=== PATIENT | male | born 1940 | race Caucasian/White ===

== ENCOUNTER 2017-02-28 04:29 | Emergency (ER) | payer MEDICARE, BC ==
[~2017-02-28] VITALS: Ht 172.7 cm; Wt 74.8 kg
[2017-02-28] MEDS ORDERED: BLACK CUMIN SEED OIL PO (04:45)
[2017-02-28] MEDS ORDERED: ACET-2154 PO (04:45)
[2017-02-28] MEDS ORDERED: RANI150C4 PO (04:45)
[2017-02-28] MEDS ORDERED: BICA50TA2 PO (04:45)
[2017-02-28] MEDS ORDERED: IV NORMAL SALINE 1000 ML BAG IV ONE (04:45)
[2017-02-28] MEDS ORDERED: HYDROMORPHONE 1 MG/1 ML DISP.SYRIN IV ONE ×2 (04:45→05:30)
[2017-02-28] MEDS ORDERED: CYAN100096 PO (04:45)
[2017-02-28] MEDS ORDERED: PRAV20TA4 PO (04:45)
[2017-02-28] MEDS ORDERED: CHOL100045 PO (04:45)
[2017-02-28] MEDS ORDERED: TURM500C4 PO (04:45)
[2017-02-28] MEDS ORDERED: ACYC800T PO (04:45)
[2017-02-28] MEDS ORDERED: [UNRECOGNIZED DRUG - CODE] MC (04:45)
[2017-02-28] MEDS ORDERED: ASPI81TA31 PO (04:45)
[2017-02-28] MEDS ORDERED: VALS40TA4 GT (04:45)
[2017-02-28] MEDS ORDERED: ONDANSETRON 4 MG/2 ML VIAL IV ONE (04:45)
[2017-02-28] MEDS ORDERED: UBID100C13 PO (04:45)
[2017-02-28] MEDS ORDERED: AMLO5TAB2 PO (04:45)
[2017-02-28] MEDS ORDERED: TAMSULOSIN HCL 0.4 MG CAP.SR.24H PO ONE (04:45)
[2017-02-28] MEDS ORDERED: KETOROLAC TROMETHAMINE 15 MG INJ IV ONE (04:45)
[2017-02-28 04:52] LABS: *BILIRUBIN,URIN NEGATIVE (NEGATIVE); *BLOOD, URINE 2+ (NEGATIVE); *CLARITY,URINE CLEAR (CLEAR); *COLOR,URINE YELLOW (YELLOW); *KETONES,URINE NEGATIVE (NEGATIVE); *PROTEIN,URINE NEGATIVE (NEGATIVE); *UROBILINOGEN,URINE 0.2 E.U./dl (NORMAL); LEUKOCYTE ESTERASE ,URINE TRACE (NEGATIVE); NITRITE, URINE NEGATIVE (NEGATIVE); PH,URINE 5.5 (5.0-8.0); UGLUCOSE NEGATIVE (NEGATIVE)
[2017-02-28] MEDS ORDERED: ONDANSETRON 4 MG/2 ML VIAL ONE (04:53)
[2017-02-28] MEDS ORDERED: KETOROLAC TROMETHAMINE 15 MG INJ ONE (04:53)
[2017-02-28] MEDS ORDERED: HYDROMORPHONE 1 MG/1 ML DISP.SYRIN ONE ×2 (04:53→05:42)
[2017-02-28] MEDS ORDERED: TAMSULOSIN HCL 0.4 MG CAP.SR.24H ONE (04:54)
--- NOTE | 2017-02-28 05:00 | NUR ---
Pt to room and changed into gown. Pt c/o severe right flank pain radiating right abd. Pt sts history of multiple kidney stones. Sts has left sided kidney stones approx 8 mos ago. Pt seen by Dr. Hartman. IV established, labs drawn and sent. Pt medicated for discomfort, will monitor for effects of medication. Fluid bolus infusing freely to gravity. Pt resting in position of comfor for self, awaiting CT
--- NOTE | 2017-02-28 05:05 | NUR ---
Pt to CT via [facility]
[2017-02-28 05:08] LABS: BACTERIA,URINE NONE SEEN /HPF (NONE SEEN); RBC,URINE 50-80 /HPF (0-3); SQUAMOUS EPITHELIAL CELL,UR NONE SEEN /HPF (NONE SEEN)
[2017-02-28 05:14] LABS: BASOPHILS % (AUTO) 0.5 % (0.0-2.0); EOSINOPHILS # (AUTO) 0.2 K/uL (0.0-0.7); HEMATOCRIT 39.3 % (40-50); HEMOGLOBIN 13.7 G/DL (14.0-18.0); LYMPHOCYTES # (AUTO) 1.5 K/UL (0.8-4.8); LYMPHOCYTES % (AUTO) 26.4 % (20.5-51.5); MEAN CORPUSCULAR HGB CONC 35 g/dL (32.0-37.0); MEAN CORPUSCULAR VOLUME 85.8 FL (82.0-92.0); MONOCYTES # (AUTO) 0.7 K/UL (0.1-1.30); MONOCYTES % (AUTO) 12.1 % (0.0-11.0); NEUTROPHILS # (AUTO) 3.4 K/UL (1.8-8.9); PLATELET COUNT (AUTO) 219 K/UL (150-450); RED BLOOD CELL COUNT(AUTO) 4.58 MIL/UL (4.7-6.1); WHITE BLOOD COUNT (AUTO) 5.8 K/UL (4.0-11.2)
[2017-02-28 05:23] LABS: ALANINE AMINOTRANSFERASE 31 U/L (16-63); ALKALINE PHOSPHATASE 61 U/L (50-136); ASPARTATE AMINOTRANSFERASE 18 U/L (15-37); BILIRUBIN,DIRECT 0.1 mg/dL (0.0-0.2); BILIRUBIN,TOTAL 0.4 mg/dL (0.2-1.0); CARBON DIOXIDE 24 mmol/L (21-32); CHLORIDE 104 mmol/L (98-107); CREATININE 1.4 mg/dL (0.6-1.3); GLUCOSE 106 mg/dL (74-106); LIPASE 103 U/L (73-393); POTASSIUM 3.7 mmol/L (3.5-5.1); TOTAL PROTEIN, SERUM 6.3 g/dL (6.4-8.2); UREA NITROGEN, BLOOD 22 mg/dL (7-18)
--- NOTE | 2017-02-28 05:34 | NUR ---
Pt returned from CT. Pt cont to c/o pain. MD notified and pt medicated. Will monitor for effects of medication. Fluid bolus completed. Pt resting in position of comfort for self. Family remains at bedside.
--- NOTE | 2017-02-28 06:07 | NUR ---
Pt resting in position of comfort. Sts pain improved with previous medication.
--- NOTE | 2017-02-28 06:58 | NUR ---
Pt stable for discharge per MD. IV dc'd, catheter intact. Drsg applied. No problems noted to site. Pt given ACI, Pt verbalized understanding of dc instructions. Pt ambulated out of er with steady gait and ride home
[2017-02-28 07:11] VITALS: BP 109/63
== END 2017-02-28 07:00 | disposition home or self-care (01) ==
LOC: ER 04:31
DX: N23 Unspecified renal colic (principal); I10 Essential (primary) hypertension; E78.00 Pure hypercholesterolemia, unspecified; Z79.82 Long term (current) use of aspirin; Z88.2 Allergy status to sulfonamides; Z87.442 Personal history of urinary calculi
CPT/HCPCS: 36415; 74176; 80048; 80076; 81001; 83690; 85025; 96361; 96374; 96375; 96376; 99285; A4663; J1170 ×2; J1885; J2405; J7030

== ENCOUNTER 2017-04-12 22:26 | Emergency (ER) | payer MEDICARE, BC ==
[~2017-04-12] VITALS: Ht 172.7 cm; Wt 74.8 kg
[~2017-04-12 22:26] MED LIST: ACET-2154 PO; ACYC800T PO; AMLO5TAB2 PO; ASPI81TA31 PO; BICA50TA2 PO; BLACK CUMIN SEED OIL PO; CHOL100045 PO; CYAN100096 PO; PRAV20TA4 PO; RANI150C4 PO; TURM500C4 PO; UBID100C13 PO; VALS40TA4 PO; [UNRECOGNIZED DRUG - CODE] MC
[2017-04-12] MEDS ORDERED: EZET10TA13 PO (23:10)
[2017-04-12 23:14] LABS: *BILIRUBIN,URIN NEGATIVE (NEGATIVE); *BLOOD, URINE Trace-intact (NEGATIVE); *CLARITY,URINE CLEAR (CLEAR); *COLOR,URINE YELLOW (YELLOW); *KETONES,URINE NEGATIVE (NEGATIVE); *PROTEIN,URINE NEGATIVE (NEGATIVE); *UROBILINOGEN,URINE 0.2 E.U./dl (NORMAL); LEUKOCYTE ESTERASE ,URINE NEGATIVE (NEGATIVE); NITRITE, URINE NEGATIVE (NEGATIVE); PH,URINE 5.5 (5.0-8.0); UGLUCOSE NEGATIVE (NEGATIVE)
[2017-04-12] MEDS ORDERED: HYDROMORPHONE 1 MG/1 ML DISP.SYRIN IV ONE (23:15)
[2017-04-12] MEDS ORDERED: ONDANSETRON 4 MG/2 ML VIAL IV ONE (23:15)
[2017-04-12] MEDS ORDERED: KETOROLAC TROMETHAMINE 15 MG INJ IV ONE (23:15)
[2017-04-12] MEDS ORDERED: IV NORMAL SALINE 1000 ML BAG IV ONE (23:15)
[2017-04-12 23:30] LABS: CARBON DIOXIDE 25 mmol/L (21-32); CHLORIDE 102 mmol/L (98-107); CREATININE 2.1 mg/dL (0.6-1.3); GLUCOSE 137 mg/dL (74-106); POTASSIUM 3.8 mmol/L (3.5-5.1); UREA NITROGEN, BLOOD 23 mg/dL (7-18)
[2017-04-12] MEDS ORDERED: KETOROLAC TROMETHAMINE 15 MG INJ ONE (23:33)
[2017-04-12] MEDS ORDERED: ONDANSETRON 4 MG/2 ML VIAL ONE (23:34)
[2017-04-12] MEDS ORDERED: HYDROMORPHONE 2 MG/1 ML DISP.SYRIN ONE (23:34)
[2017-04-12 23:36] LABS: ALANINE AMINOTRANSFERASE 28 U/L (16-63); ALKALINE PHOSPHATASE 58 U/L (50-136); ASPARTATE AMINOTRANSFERASE 24 U/L (15-37); BILIRUBIN,DIRECT 0.2 mg/dL (0.0-0.2); BILIRUBIN,TOTAL 0.7 mg/dL (0.2-1.0); LIPASE 109 U/L (73-393); TOTAL PROTEIN, SERUM 6.3 g/dL (6.4-8.2)
[2017-04-12 23:39] LABS: BACTERIA,URINE FEW /HPF (NONE SEEN)
[2017-04-12 23:40] LABS: SQUAMOUS EPITHELIAL CELL,UR FEW /HPF (NONE SEEN)
[2017-04-12 23:44] LABS: BASOPHILS % (AUTO) 0.3 % (0.0-2.0); EOSINOPHILS # (AUTO) 0.1 K/uL (0.0-0.7); EOSINOPHILS % (AUTO) 0.7 % (0.0-7.0); HEMATOCRIT 37.7 % (40-50); HEMOGLOBIN 12.5 G/DL (14.0-18.0); LYMPHOCYTES # (AUTO) 0.8 K/UL (0.8-4.8); LYMPHOCYTES % (AUTO) 9.4 % (20.5-51.5); MEAN CORPUSCULAR HEMOGLOBIN 28.9 UUG (27.0-31.0); MEAN CORPUSCULAR HGB CONC 33 g/dL (32.0-37.0); MONOCYTES # (AUTO) 0.6 K/UL (0.1-1.30); MONOCYTES % (AUTO) 7.2 % (0.0-11.0); NEUTROPHILS # (AUTO) 6.8 K/UL (1.8-8.9); NEUTROPHILS % (AUTO) 82.4 % (38.5-71.5); PLATELET COUNT (AUTO) 188 K/UL (150-450); RED BLOOD CELL COUNT(AUTO) 4.33 MIL/UL (4.7-6.1); WHITE BLOOD COUNT (AUTO) 8.3 K/UL (4.0-11.2)
--- NOTE | 2017-04-13 01:25 | NUR ---
Patient discharged to home in stable conditon accompanied by family. Written and verbal after care instructions given. Patient verbalizes understanding of instructions.
[2017-04-13 01:26] VITALS: BP 120/72
== END 2017-04-13 01:26 | disposition home or self-care (01) ==
LOC: ER 22:27
DX: N23 Unspecified renal colic (principal); I10 Essential (primary) hypertension; E78.00 Pure hypercholesterolemia, unspecified; Z88.2 Allergy status to sulfonamides; Z79.82 Long term (current) use of aspirin; Z87.442 Personal history of urinary calculi; Z85.46 Personal history of malignant neoplasm of prostate
CPT/HCPCS: 36415; 76770; 83690; 85025; A4663; J1170; J1885; J2405; J7030

== ENCOUNTER 2022-10-09 21:41 | Emergency (ER) | payer MEDICARE, BC ==
[~2022-10-09] VITALS: Ht 172.7 cm; Wt 72.6 kg
[~2022-10-09 21:41] MED LIST changes: +ACYC-108 PO; -ACYC800T PO; +AMLO-212 PO; -AMLO5TAB2 PO; -BICA50TA2 PO; +BICA50TA49 PO; +EZET10TA15 PO
--- NOTE | 2022-10-09 22:00 | NUR ---
Dr. MACDONALD at [facility]. [facility] [place] in progress.
[2022-10-09] MEDS ORDERED: MORPHINE SULFATE 4 MG/1 ML DISP.SYRIN ONE (22:11)
[2022-10-09] MEDS ORDERED: IV NORMAL SALINE 1000 ML BAG IV ONE (22:15)
[2022-10-09] MEDS ORDERED: MORPHINE SULFATE 4 MG/1 ML DISP.SYRIN IV ONE (22:15)
[2022-10-09 22:29] LABS: HEMATOCRIT 38.4 % (36.7-47.1); MEAN CORPUSCULAR HEMOGLOBIN 29.8 uug (23.8-33.4); MEAN CORPUSCULAR VOLUME 86.8 fL (73.0-96.2); PLATELET COUNT (AUTO) 204 K/uL (152-348)
[2022-10-09 22:40] LABS: *BILIRUBIN,URIN NEGATIVE (NEGATIVE); *CLARITY,URINE CLEAR (CLEAR); *COLOR,URINE YELLOW (YELLOW); *KETONES,URINE NEGATIVE (NEGATIVE); *UROBILINOGEN,URINE 0.2 E.U./dl (NORMAL); LEUKOCYTE ESTERASE ,URINE NEGATIVE (NEGATIVE); NITRITE, URINE NEGATIVE (NEGATIVE); UGLUCOSE NEGATIVE (NEGATIVE)
[2022-10-09 22:41] LABS: CARBON DIOXIDE 28 mmol/L (21-32); CHLORIDE 103 mmol/L (98-107); CREATININE 1.4 mg/dL (0.6-1.3); GLUCOSE 133 mg/dL (74-106); POTASSIUM 3.8 mmol/L (3.5-5.1); UREA NITROGEN, BLOOD 21 mg/dL (7-18)
[2022-10-09 22:42] LABS: *BLOOD, URINE TRACE (NEGATIVE)
[2022-10-09 22:47] LABS: ALANINE AMINOTRANSFERASE 27 U/L (16-63); ALKALINE PHOSPHATASE 51 U/L (50-136); ASPARTATE AMINOTRANSFERASE 24 U/L (15-37); BILIRUBIN,DIRECT 0.2 mg/dL (0.0-0.2); BILIRUBIN,TOTAL 0.8 mg/dL (0.2-1.0); LIPASE 251 U/L (73-393); TOTAL PROTEIN, SERUM 6.3 g/dL (6.4-8.2)
[2022-10-09] MEDS ORDERED: HYDROMORPHONE 1 MG/1 ML DISP.SYRIN ONE (22:54)
[2022-10-09] MEDS ORDERED: HYDROMORPHONE 1 MG/1 ML DISP.SYRIN IV ONE (23:00)
--- NOTE | 2022-10-09 23:08 | NUR ---
Patient taken down for CT.
--- NOTE | 2022-10-09 23:24 | NUR ---
Patient brought back from CT.
--- NOTE | 2022-10-10 00:15 | NUR ---
Dr. Sims at bedside.
[2022-10-10] MEDS ORDERED: TAMS-3 PO (00:19)
[2022-10-10] MEDS ORDERED: KETOROLAC TROMETHAMINE 15 MG INJ ONE (00:19)
[2022-10-10] MEDS ORDERED: OXYC5CAP18 PO (00:19)
[2022-10-10] MEDS ORDERED: HYDROMORPHONE 1 MG/1 ML DISP.SYRIN ONE ×2 (00:20→00:25)
[2022-10-10] MEDS ORDERED: KETOROLAC TROMETHAMINE 15 MG INJ IVP ONE (00:30)
[2022-10-10] MEDS ORDERED: HYDROMORPHONE 1 MG/1 ML DISP.SYRIN IV ONE (00:30)
--- NOTE | 2022-10-10 00:30 | NUR ---
The 1 mg dilaudid packaging was damaged and medication spilled out. DAVID Pacheco witnessed. Therefore, an additional 1 mg dilaudid removed to administer 0.[address] mg as ordered [address] Sims.
[2022-10-10 00:45] LABS: BACTERIA,URINE NONE SEEN /HPF (NONE SEEN); SQUAMOUS EPITHELIAL CELL,UR FEW /HPF (NONE SEEN); WBC,URINE 0-3 /HPF (0-3)
--- NOTE | 2022-10-10 00:56 | NUR ---
Patient discharged to home in stable condition. A/O x 4. NAD noted. Ambulatory with a steady gait. Written and verbal after care instructions given. Patient verbalizes understanding of instructions. Stressed follow up or return to ER for worsening s/s.
[2022-10-10 00:57] VITALS: BP 142/54
== END 2022-10-10 00:57 | disposition home or self-care (01) ==
LOC: ER 21:41
DX: N13.2 Hydronephrosis with renal and ureteral calculous obstruction (principal); I10 Essential (primary) hypertension; Z88.2 Allergy status to sulfonamides; Z87.442 Personal history of urinary calculi; Z85.46 Personal history of malignant neoplasm of prostate; Z90.79 Acquired absence of other genital organ(s); E78.5 Hyperlipidemia, unspecified; Z86.39 Personal history of other endocrine, nutritional and metabolic disease; K80.20 Calculus of gallbladder without cholecystitis without obstruction
CPT/HCPCS: 99285; 74176; 96374; 96361; 96375 ×2; 80076; 80048; 81001; 83690; 85025; 36415; 96376; J1170 ×3; J2270; J7040; J1885; A4663